=== PATIENT | male | born 1985 | race Two or more races ===

== ENCOUNTER 2022-12-13 10:44 | Inpatient (IN) | payer OTHER ==
[2022-12-13 11:31] VITALS: BMI 29.3
[2022-12-13] MEDS ORDERED: MAGNESIUM HYDROX 2400MG/30ML ORAL SUSPENSION 30 ML CUP PO PRN (11:54)
[2022-12-13] MEDS ORDERED: NALOXONE HCL (KLOXXADO) 8 MG SPRAY NS PRN (11:54)
[2022-12-13] MEDS ORDERED: MAG HYDROX/AL HYDROX/SIMETH 30 ML UNIT-DOSE CUP PO PRN (11:54)
[2022-12-13] MEDS ORDERED: NICOTINE 10 MG CARTRIDGE (INHALER) IH PRN (11:54)
[2022-12-13] MEDS ORDERED: POLYETHYLENE GLYCOL (HEALTHYLAX) 3350 17 GM PACKET PO PRN (11:54)
[2022-12-13] MEDS ORDERED: ONDANSETRON *ODT* 4 MG TABLET SL PRN (11:54)
[2022-12-13] MEDS ORDERED: BISMUTH SUBSALICYLATE 262 MG/15 ML BTL PO PRN (11:54)
[2022-12-13] MEDS ORDERED: LOPERAMIDE HCL 2 MG CAPSULE PO PRN (11:54)
[2022-12-13] MEDS ORDERED: NALOXONE HCL 0.4 MG/ML VIAL IM PRN (11:54)
[2022-12-13] MEDS ORDERED: BENZONATATE 200 MG CAPSULE PO PRN (11:54)
[2022-12-13] MEDS ORDERED: IBUPROFEN 600 MG TABLET (FP) PO PRN (11:54)
[2022-12-13] MEDS ORDERED: DICYCLOMINE HCL 10 MG CAPSULE PO PRN (11:54)
[2022-12-13] MEDS ORDERED: IBUPROFEN 400 MG TABLET (FP) PO PRN (11:54)
[2022-12-13] MEDS ORDERED: BENZOCAINE/MENTHOL (CHLORASEPTIC ) LOZENGE MM PRN (11:54)
[2022-12-13] MEDS ORDERED: guaiFENesin 600 MG TABLET.ER (FP) PO PRN (11:54)
[2022-12-13] MEDS ORDERED: hydrOXYzine PAMOATE 25 MG CAPSULE (FP) PO PRN (11:54)
[2022-12-13] MEDS ORDERED: ACETAMINOPHEN 325 MG TABLET (FP) PO PRN (11:54)
[2022-12-13] MEDS ORDERED: METHOCARBAMOL 500 MG TABLET PO PRN (11:54)
[2022-12-13] MEDS ORDERED: PRENATAL VITAMINS W/ FOLIC ACID TABLET (FP) PO ONE (12:38)
[2022-12-13] MEDS: PRENATAL VITAMINS W/ FOLIC ACID TABLET (FP) PO SCH (12:42)
[2022-12-13] MEDS: NICOTINE 14 MG/24 HOURS TOPICAL PATCH TD SCH (12:42)
[2022-12-13] MEDS: levETIRAcetam 250 MG TABLET PO SCH ×2 (14:01→22:45)
[2022-12-13 17:39] LABS: HEMATOCRIT 40.1 % (35.4-49); HEMOGLOBIN 13.4 GM/dL (11.7-16.9); MCHC 33.5 g/dl (32.0-35.9); MEAN CELL VOLUME 89.5 fl (80-96); MEAN PLT VOLUME 8.3 fl (7.5-11.1); PLATELET COUNT 389 10^3/uL (134-434); RBC 4.48 M/mm3 (4.00-5.60); WHITE BLOOD COUNT 5.8 K/mm3 (4.0-10.0)
[2022-12-13 17:43] LABS: POTASSIUM 3.7 mmol/L (3.5-5.1)
[2022-12-13 17:49] LABS: CALCIUM 9.2 mg/dL (8.5-10.1)
[2022-12-13 17:50] LABS: ALBUMIN 3.5 g/dl (3.4-5.0); BLOOD UREA NITROGEN 12.4 mg/dL (7-18)
[2022-12-13 17:53] LABS: CREATININE 0.9 mg/dL (0.55-1.3)
[2022-12-13 17:54] LABS: TOT PROT 6.4 g/dl (6.4-8.2)
[2022-12-13 17:55] LABS: BILIRUBIN,TOTAL 0.4 mg/dL (0.2-1)
[2022-12-13 20:50] VITALS: TEMP 97.5
[2022-12-13] MEDS ORDERED: THIAMINE HCL 100 MG TABLET (FP) PO SCH (22:00)
[2022-12-13] MEDS ORDERED: MELATONIN 5 MG TABLETS PO SCH (22:00)
[2022-12-14 06:20] VITALS: PULSE 66; RESP 18
[2022-12-14 09:27] VITALS: BP 132/86
[2022-12-14] MEDS: NICOTINE 14 MG/24 HOURS TOPICAL PATCH TD SCH (10:25)
[2022-12-14] MEDS: levETIRAcetam 250 MG TABLET PO SCH (10:25)
[2022-12-14] MEDS: PRENATAL VITAMINS W/ FOLIC ACID TABLET (FP) PO SCH (10:26)
== END 2022-12-14 10:58 | disposition home or self-care (01) | DRG 897 ==
LOC: YASAS 10:44 → Y6N 12:33
PROVIDERS: ADMIT Allergy & Immunology; ATTEND Surgery
PROC: HZ2ZZZZ Detoxification Services for Substance Abuse Treatment (ICD-10-PCS; principal; 2022-12-13)
DX: F10.230 Alcohol dependence with withdrawal, uncomplicated (principal); F13.20 Sedative, hypnotic or anxiolytic dependence, uncomplicated; F14.20 Cocaine dependence, uncomplicated; F17.213 Nicotine dependence, cigarettes, with withdrawal; Z59.00 Homelessness unspecified
CPT/HCPCS: 36415; 80053; 85027; 86780; 87635; 87811; 93005; 93010

== ENCOUNTER 2024-06-28 10:42 | Inpatient (IN) | payer OTHER ==
[2024-06-28 11:32] VITALS: BMI 28.0
[2024-06-28] MEDS ORDERED: BENZOCAINE/MENTHOL (CHLORASEPTIC ) LOZENGE MM PRN (11:53)
[2024-06-28] MEDS ORDERED: NALOXONE (NARCAN) HCL 4 MG/0.1 ML SPRAY NS PRN (11:53)
[2024-06-28] MEDS ORDERED: MAG HYDROX/AL HYDROX/SIMETH 30 ML UNIT-DOSE CUP PO PRN (11:53)
[2024-06-28] MEDS ORDERED: NICOTINE POLACRILEX 2 MG GUM BUC PRN (11:53)
[2024-06-28] MEDS ORDERED: ONDANSETRON *ODT* 4 MG TABLET SL PRN (11:53)
[2024-06-28] MEDS ORDERED: guaiFENesin 600 MG TABLET.ER (FP) PO PRN (11:53)
[2024-06-28] MEDS ORDERED: IBUPROFEN 600 MG TABLET (FP) PO PRN (11:53)
[2024-06-28] MEDS ORDERED: POLYETHYLENE GLYCOL (HEALTHYLAX) 3350 17 GM PACKET PO PRN (11:53)
[2024-06-28] MEDS ORDERED: ACETAMINOPHEN 325 MG TABLET (FP) PO PRN (11:53)
[2024-06-28] MEDS ORDERED: LOPERAMIDE HCL 2 MG CAPSULE PO PRN (11:53)
[2024-06-28] MEDS ORDERED: IBUPROFEN 400 MG TABLET (FP) PO PRN (11:53)
[2024-06-28] MEDS ORDERED: BENZONATATE 200 MG CAPSULE PO PRN (11:53)
[2024-06-28] MEDS ORDERED: BISMUTH SUBSALICYLATE 262 MG/15 ML BTL PO PRN (11:53)
[2024-06-28] MEDS ORDERED: MAGNESIUM HYDROX 2400MG/30ML ORAL SUSPENSION 30 ML CUP PO PRN (11:53)
[2024-06-28] MEDS: PRENATAL VITAMINS W/ FOLIC ACID TABLET (FP) PO SCH (12:51)
[2024-06-28] MEDS: MELATONIN 5 MG TABLETS PO SCH (23:30)
[2024-06-28] MEDS: THIAMINE 100 MG TABLET PO SCH (23:30)
[2024-06-29 09:40] LABS: HEMATOCRIT 46.2 % (35.4-49); HEMOGLOBIN 14.7 GM/dL (11.7-16.9); MCH 28.6 pg (25.7-33.7); MCHC 31.7 g/dl (32.0-35.9); MEAN CELL VOLUME 90.1 fl (80-96); MEAN PLT VOLUME 8.2 fl (7.5-11.1); PLATELET COUNT 404 10^3/uL (134-434); RBC 5.13 M/mm3 (4.00-5.60); RDW 13.9 % (11.9-15.9); WHITE BLOOD COUNT 7.3 K/mm3 (4.0-10.0)
[2024-06-29 09:45] LABS: POTASSIUM 4.7 mmol/L (3.5-5.1)
[2024-06-29 10:16] LABS: CALCIUM 9.8 mg/dL (8.5-10.1)
[2024-06-29 10:17] LABS: ALBUMIN 3.6 g/dl (3.4-5.0); BLOOD UREA NITROGEN 9.9 mg/dL (7-18)
[2024-06-29 10:19] LABS: BILIRUBIN,TOTAL 0.6 mg/dL (0.2-1); CREATININE 0.8 mg/dL (0.55-1.3)
[2024-06-29 10:20] LABS: TOT PROT 6.7 g/dl (6.4-8.2)
[2024-06-29] MEDS: diazePAM 5 MG TABLET PO SCH (11:24)
[2024-06-30] MEDS: METHOCARBAMOL 500 MG TABLET PO PRN (10:36)
[2024-06-30] MEDS: hydrOXYzine PAMOATE 25 MG CAPSULE (FP) PO PRN (10:36)
[2024-07-01] MEDS: diazePAM 5 MG TABLET PO SCH (06:15)
[2024-07-01] MEDS: DICYCLOMINE HCL 10 MG CAPSULE PO PRN (09:28)
[2024-07-01] MEDS: diazePAM 5 MG TABLET PO PRN (23:09)
[2024-07-02] MEDS: diazePAM 5 MG TABLET PO SCH (06:01)
[2024-07-02 06:22] VITALS: RESP 18
[2024-07-02 08:41] VITALS: BP 114/63; PULSE 66; TEMP 98.2
[2024-07-02] MEDS: NALOXONE (NYS OPIOID OVERDOSE PROGRAM) 4 MG/0.1 ML SPRAY NS SCH (09:16)
[2024-07-02] MEDS ORDERED: NALOXONE (NYS OPIOID OVERDOSE PROGRAM) 4 MG/0.1 ML SPRAY NS SCH (11:15)
[2024-07-03] MEDS ORDERED: diazePAM 5 MG TABLET PO ONE (06:00)
== END 2024-07-02 10:49 | disposition home or self-care (01) | DRG 897 ==
LOC: YASAS 10:42 → Y6N 12:02
PROVIDERS: ADMIT Allergy & Immunology; ATTEND Family Medicine Addiction Medicine
PROC: HZ2ZZZZ Detoxification Services for Substance Abuse Treatment (ICD-10-PCS; principal; 2024-06-28)
DX: F10.230 Alcohol dependence with withdrawal, uncomplicated (principal); F14.20 Cocaine dependence, uncomplicated; F19.282 Other psychoactive substance dependence with psychoactive substance-induced sleep disorder; Z59.01 Sheltered homelessness; F17.210 Nicotine dependence, cigarettes, uncomplicated; F31.9 Bipolar disorder, unspecified; F25.9 Schizoaffective disorder, unspecified
CPT/HCPCS: 36415; 80053; 80305; 80307; 85027; 86780; 93005; 93010